=== PATIENT | female | born 1975 | race African-American/Black ===

== ENCOUNTER 2017-03-26 05:28 | Observation (INO) | payer BC, OTHER ==
[2017-03-26] VITALS (8 sets, daily range): BP systolic 115–141; BP diastolic 63–81
[~2017-03-26] VITALS: Ht 170.2 cm; Wt 83.9 kg
--- NOTE | ~2017-03-26 | O ---
[address] [address] OPERATIVE REPORT Name: SCOTT COSTA Angel Room #: 536-P [facility] Peyman#: [id number] Admission: 03/26/17 Attend Phys: Jose Bustillos MD Discharge: Date of : 79 Report #: [id number] THIS REPORT FOR: //name// CC: LISA Bustillos DATE OF SERVICE: 03/26/2017 SERVICE: Orthopedics. FACILITY: [facility]. SURGEON: Jose Bustillos MD QUALITY ASSURANCE SUPERVISOR: None. PREOPERATIVE DIAGNOSES: 1. Right hip pain. 2. 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 4. Right hip labral tear. 5. Right hip labral calcification. 6. Autoimmune disorder POSTOPERATIVE DIAGNOSES: 1. Right hip pain. 2. 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 4. Right hip labral tear. 5. Right hip labral calcification. 6. Autoimmune disorder PROCEDURES: 1. Right hip arthroscopy with acetabuloplasty. 2. Right hip arthroscopic labral reconstruction with allograft. 3. Right hip arthroscopic Cam osteoplasty with capsular closure. COMPLICATIONS: None. DRAINS: None. SPECIMENS: None. ANESTHESIA TYPE: General with regional nerve block. [address] [address] OPERATIVE REPORT Name: SCOTT COSTA Room #: 536-P [facility]#: [id number] Admission: 03/26/17 Attend Phys: Jose Bustillos MD Discharge: Date of : 79 Report #: [id number] FINDINGS: 1. Focal full thickness acetabular labral tear at the chondral labral junction. 2. Extensive calcification of the labrum otherwise that precluded simple labral repair. Acetabuloplasty performed with arthroscopic and fluoroscopic localization. 3. Allograft reconstruction performed with fascia kristina allograft with a total of 8 [employer] NanoTack suture anchors. 4. Capsular closure with #2 Vicryl. 5. Articular cartilage intact with the exception of the far periphery adjacent to the labrum at the 1 o'clock to 11 o'clock position on this right hip. HISTORY AND INDICATIONS: The patient is a 41-year-old female who suffers from autoimmune disorder, has been having significant amount of right hip pain for several years now. She had previously successfully treated with activity modification, and oral anti-inflammatories, but this was no longer working. She had failed activity modification, therefore, nonsteroidal anti-inflammatories, intraarticular steroid injection, physical therapy and other modalities. Screening x-rays demonstrated combined type right hip impingement with a Cam deformity and alpha angle of approximately 60 degrees at the maximum, which was located distal on the neck and pincer deformity with crossover sign and an increased lateral center edge angle of approximately 50 degrees. She also had MRI that was consistent with a labral tear as well as a diminutive labrum suggestive of calcification. The X-ray showed ossification within the labrum as well. Plans were made for surgical treatment after she failed conservative measures due to pain limiting her activities of daily living as well as her job duties. Plans were made for right hip arthroscopy, acetabuloplasty, labral reconstruction due to the calcified labrum and history of autoimmune disorder, Cam osteoplasty and procedures as indicated. Risks, benefits, alternatives, and indications for surgery were discussed with her in detail. Risks include, but not limited to pain, bleeding, infection, injury to nerves or blood vessels, persistent pain despite surgical intervention, failure of any repairs, reconstructions, progression of any preexisting chondral injury, stiffness, need for further surgery as well as complications related to anesthesia such as stroke, heart attack, pulmonary complications, thromboembolic disease and . Despite these risks, she wished to proceed. PROCEDURE IN DETAIL: After the right lower extremity was correctly identified in the preoperative holding area as the operative extremity, the patient underwent placement of a single shot regional nerve block by the anesthesia team. She was then taken to operating room and placed supine on operating table and general anesthesia was induced without complication. All bony prominences were padded appropriately as were subcutaneous nerves. She was placed in traction boots bilaterally and then the right hip femoral head and neck junction was mapped out under fluoroscopy to identify the extent of the Cam lesion, which [address] [address] OPERATIVE REPORT Name: SCOTT COSTA Room #: 536-P [facility] Leann M.R.#: [id number] Admission: 03/26/17 Attend Phys: Jose Bustillos MD Discharge: Date of : 79 Report #: [id number] extended from essentially the 50-degree position to the 90-degree position on the femoral neck. The bump was most prominent more distal on the neck, which corresponded with the very large pincer-sided lesion she had as evidenced by the crossover and increased lateral center edge angle. The hip was then confirmed to be distractable for arthroscopy then the traction was let down. Prophylactic antibiotics were administered at appropriate time. Then, the right lower extremity was prepped and draped in standard sterile fashion. A time-out procedure was performed. Traction was then applied to the right lower extremity and an anterolateral viewing portal was established. Diagnostic arthroscopy was performed after the mid anterior portal was established under direct arthroscopic visualization and then a transverse capsulotomy had been performed. There was intense synovitis and erythema in the capsule anteriorly as well as posteriorly and the pulvinar had some inflammation. With a history of autoimmune disorder, I elected to perform an extensive synovectomy of the pulvinar synovium to hopefully mitigate any possibility of synovial proliferative inflammatory process. The acetabular cartilage was intact as was the femoral head articular cartilage. The labrum had a clear tear at the chondral labral junction and the labrum overall had an abnormal appearance due to the presence of calcification within the labrum. On probing, it could be easily identified that the majority of the labrum in the anterior and anterolateral position had in fact become calcified. For this reason, labral repair is not the best option as there is minimal labral tissue for repair and resection of the acetabular over-coverage would leave her with no labrum to repair anyway. Therefore, a biter was used to prepare the acetabulum for the acetabular labral reconstruction and then when the diminutive marshall labrum was resected, the bur was used to perform an acetabuloplasty in the subspine position as well as correcting the over coverage. Care was taken to avoid excessive resection into the sourcil, so as to not create an instability issue. The rim was then prepared in standard fashion and at this point, traction was let down and attention was turned towards the femur. The hip was flexed up and then the arthroscopic bur was used to perform the Cam osteoplasty working in the area where the Cam lesion had been identified preoperatively. After this was completed, x-rays were taken to confirm that complete resection of the Cam deformity had been performed and then the hip was then placed back into traction to complete the reconstruction. A fascia iliaca allograft was tubularized and fashioned into a sturdy allograft. In a sequential fashion starting at the 4:30 position anteromedially, the first anchor was placed adjacent to the marshall labrum and then working around the acetabular rim a total of 8 suture anchors were placed. The first two and the last one were NanoTack suture anchors and the intervening 5 were NanoTack anchors with labral tape. After all [address] [address] OPERATIVE REPORT Name: SCOTT COSTA Room #: 536-P [facility]#: [id number] Admission: 03/26/17 Attend Phys: Jose Bustillos MD Discharge: Date of : 79 Report #: [id number] the anchors were placed, suture management was performed and then the 90 x 5 mm graft was passed into the hip and tied anteriorly securely overlapping behind the marshall labrum passing the suture limb through the marshall labrum and graft. The second suture was then passed around the graft and a secure fixation was achieved at this junction. Then in a sequential fashion, the sutures were passed in a cerclage technique to repair the labral reconstruction allograft while it was held in anatomic position working around posterolaterally and then the final suture anchor was passed through the graft and then through the marshall labrum to provide a good secure fixed here as well. At this point, all debris was lavaged out of the hip and traction was let down. The capsule was then closed with #2 Vicryl times 2 with simple suture and good reapproximation of the capsular tissue was achieved. After the capsule was closed, final x-rays were taken. The instruments were removed from the hip. The portal sites were closed by a deep followed by superficial 3-0 Monocryl suture. Sterile dressing was applied. The patient was awakened from anesthesia and taken to recovery room in stable condition. There were no complications and all counts were recorded as correct. <ELECTRONICALLY SIGNED> By: Jose Bustillos MD 03/27/17 0626 [id number] Jose Bustillos MD /nt
[~2017-03-26 05:28] MED LIST: CARISOPRODOL 3350 MG PO; FLEXERIL PO; GAS-X125 MG PO; HYDROXYCHLOROQ200 M1 PO; NAPROSYN500 MG PO; NASACORT10.8 ML NASAL; PANTOPRAZOLE SO40 M1 PO; PEPCID20 MG PO; TOPROL XL50 MG; TRAMADOL 50 MG50 MG PO; [UNRECOGNIZED DRUG - OTHER] PO; [UNRECOGNIZED DRUG - OTHER] PO
[2017-03-27 03:42] VITALS: BP 113/58
[2017-03-27 08:18] VITALS: BP 117/59
[2017-03-27 10:45] VITALS: BP 117/59
== END 2017-03-27 14:55 | disposition home or self-care (01) ==
LOC: 5S 05:28 → TBA 05:28 → 5S 09:43
DX: M54.16 Radiculopathy, lumbar region (principal); M51.26 Other intervertebral disc displacement, lumbar region; M51.36 Other intervertebral disc degeneration, lumbar region